=== PATIENT | male | born 1965 | race Caucasian/White ===

== ENCOUNTER 2019-12-02 16:39 | Emergency (ER) | payer OTHER ==
[~2019-12-02] VITALS: Ht 177.8 cm; Wt 101.2 kg
[2019-12-02] MEDS ORDERED: Nitroglycerin Subl 0.4mg tab SL ONE (16:50)
[2019-12-02 16:51] VITALS: BP 155/90
--- NOTE | 2019-12-02 16:51 | NUR ---
ED Nurse Note: PT walked in to ED for C/o SOB that started about 30 min ago. Per PT, SOB started after he started to chew his nicotine gum. Sp02 is 96 % on room air.
[2019-12-02] MEDS ORDERED: Nitroglycerin Subl 0.4mg tab SL PRN (17:00)
[2019-12-02 17:04] VITALS: BP 154/78
--- NOTE | 2019-12-02 17:04 | NUR ---
ED Nurse Note: blood sample collected and sent to lab
[2019-12-02 17:14] LABS: EOSINOPHILS % (AUTO) 0.7 % (0.0-3.0); HEMATOCRIT 44.1 % (42.0-52.0); HEMOGLOBIN 14.6 G/DL (14.2-18.0); LYMPHOCYTES % (AUTO) 25.9 % (20.0-45.0); MEAN CORPUSCULAR VOLUME 90 FL (80-99); MONOCYTES % (AUTO) 4.4 % (1.0-10.0); PLATELET COUNT 242 K/UL (150-450); RED BLOOD COUNT 4.92 M/UL (4.70-6.10); RED CELL DISTRIBUTION WIDTH 11.9 % (11.6-14.8)
--- NOTE | 2019-12-02 17:21 | Emergency Room Report ---
History of Present Illness General Chief Complaint: Dyspnea/Respdistress Source: Patient Present Illness HPI Patient is a 54-year-old male who presents after increased central chest discomfort. 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 Previously had been a smoker but denies any current smoking. He states he had been having recent increased use of nicotine gum. Reports having onset of chest tightness immediately after taking the gum. Denies any prior cardiac events. Patient states he is followed by his geophysical e logger Dr. Tariq. Denies any cough. He states he is been exercising more frequently as well as taking his cholesterol medications. He states he took aspirin 162 mg this morning. Onset of symptoms occurred approximately 30 minutes prior to arrival. Allergies: Coded Allergies: LISINOPRIL (Verified Allergy, Unknown, 12/02/19) COVID-19 Screening Contact w/high risk pt: No Recent Travel to affected area: No Experienced COVID-19 symptoms?: Yes COVID-19 symptoms experienced: Shortness of Breath COVID-19 Testing performed RESPIRATORY CARE SPECIALIST: No Patient History Past Medical History: see triage record Reviewed Nursing Documentation: PMH: Agreed; PSxH: Agreed Nursing Documentation-PMH Past Medical History: No History, Except For Hx Hypertension: Yes - high cholesterol Review of Systems All Other Systems: negative except mentioned in HPI Physical Exam Vital Signs Date Time Temp Pulse Resp B/P (MAP) Pulse Ox O2 Delivery O2 Flow Rate FiO2 12/02/19 16:49 98.2 86 18 152/91 (111) 95 Room Air Sp02 EP Interpretation: reviewed, normal General Appearance: normal inspection, well appearing, no apparent distress, alert Head: atraumatic ENT: normal ENT inspection, hearing grossly normal, normal voice Neck: normal inspection, full range of motion, supple, no bony tend Respiratory: normal inspection, lungs clear, normal breath sounds, no respiratory distress, no retraction, no wheezing Cardiovascular #1: regular rate, rhythm, no edema Gastrointestinal: normal inspection, normal bowel sounds, non tender, soft, no guarding, no hernia Genitourinary: no CVA tenderness Musculoskeletal: normal inspection, back normal, normal range of motion Neurologic: alert, responsive, speech normal, normal inspection Psychiatric: normal inspection, judgement/insight normal, mood/affect normal Medical Decision Making Diagnostic Impression: Primary Impression: Nonspecific chest pain ER Course Patient presented for chest pain. Differential diagnosis included but was not limited to acute coronary syndrome, pulmonary embolism, pneumonia, aortic dissection, shingles, pneumothorax, aortic dissection, esophageal rupture, pericarditis. EKG showed normal sinus rhythm without acute ST or T wave changes. CXR showed no acute pulmonary disease read by radiology. Bedside ultrasound showed no evidence of acute cardiac wall motion abnormalities. Patient appears to have chest pain which does have some risk for coronary artery disease. Patient was advised of this risk. He was also advised of laboratory testing. Patient was offered admission for further evaluation and work-up of chest discomfort and he stated he did not want to be admitted to the hospital or have observation for repeat troponins. Patient was advised that leaving the hospital AGAINST MEDICAL ADVICE may result in myocardial injury, or loss of current lifestyle. or patient said he would follow-up with his geophysical e logger. He was given prescription for nitroglycerin. Patient was advised to return if he had any worsening of condition or other concerns. Labs Test 12/02/19 17:00 White Blood Count 8.0 K/UL (4.8-10.8) Red Blood Count 4.92 M/UL (4.70-6.10) Hemoglobin 14.6 G/DL (14.2-18.0) Hematocrit 44.1 % (42.0-52.0) Mean Corpuscular Volume 90 FL (80-99) Mean Corpuscular Hemoglobin 29.8 PG (27.0-31.0) Mean Corpuscular Hemoglobin Concent 33.2 G/DL (32.0-36.0) Red Cell Distribution Width 11.9 % (11.6-14.8) Platelet Count 242 K/UL (150-450) Mean Platelet Volume 7.5 FL (6.5-10.1) Neutrophils (%) (Auto) 68.0 % (45.0-75.0) Lymphocytes (%) (Auto) 25.9 % (20.0-45.0) Monocytes (%) (Auto) 4.4 % (1.0-10.0) Eosinophils (%) (Auto) 0.7 % (0.0-3.0) Basophils (%) (Auto) 1.0 % (0.0-2.0) D-Dimer 0.36 mg/L FEU (0.00-0.49) Sodium Level 143 MMOL/L (136-145) Potassium Level 3.5 MMOL/L (3.5-5.1) Chloride Level 106 MMOL/L (98-107) Carbon Dioxide Level 25 MMOL/L (21-32) Anion Gap 12 mmol/L (5-15) Blood Urea Nitrogen 14 mg/dL (7-18) Creatinine 1.2 MG/DL (0.55-1.30) Estimat Glomerular Filtration Rate > 60 mL/min (>60) Glucose Level 102 MG/DL (74-106) Calcium Level 9.2 MG/DL (8.5-10.1) Total Bilirubin 2.0 MG/DL (0.2-1.0) Direct Bilirubin 0.3 MG/DL (0.0-0.3) Aspartate Amino Transf (AST/SGOT) 30 U/L (15-37) Alanine Aminotransferase (ALT/SGPT) 40 U/L (12-78) Alkaline Phosphatase 84 U/L (46-116) Troponin I 0.000 ng/mL (0.000-0.056) Pro-B-Type Natriuretic Peptide 38 pg/mL (0-125) Total Protein 7.4 G/DL (6.4-8.2) Albumin 4.0 G/DL (3.4-5.0) Globulin 3.4 g/dL Albumin/Globulin Ratio 1.2 (1.0-2.7) Lipase 111 U/L (73-393) EKG Diagnostic Results Rate: normal Rhythm: NSR ST Segments: no acute changes Last Vital Signs Date Time Temp Pulse Resp B/P (MAP) Pulse Ox O2 Delivery O2 Flow Rate FiO2 12/02/19 17:04 154/78 12/02/19 16:51 98.2 95 18 96 Room Air Status: improved Disposition: AGAINST MEDICAL ADVICE Condition: Stable Scripts Nitroglycerin 0.4MG table* (Nitroglycerin*) 0.4 Mg Tab.subl 0.4 MG SL .Q5MIN X 3 DOSES PRN for CHEST PAIN, #90 TAB Prov: Rolo Corley MD 12/02/19 Referrals: NON PHYSICIAN (PCP) Rolo Corley MD December 02, 2019 17:21
[2019-12-02 17:26] LABS: ANION GAP 12 mmol/L (5-15); BLOOD UREA NITROGEN 14 mg/dL (7-18); CALCIUM 9.2 MG/DL (8.5-10.1); CARBON DIOXIDE 25 MMOL/L (21-32); CHLORIDE 106 MMOL/L (98-107); CREATININE 1.2 MG/DL (0.55-1.30); POTASSIUM 3.5 MMOL/L (3.5-5.1); SODIUM 143 MMOL/L (136-145)
[2019-12-02 17:38] LABS: ALANINE AMINOTRANSFERASE 40 U/L (12-78); ALBUMIN/GLOBULIN RATIO 1.2 (1.0-2.7); ALKALINE PHOSPHATASE 84 U/L (46-116); ASPARTATE AMINO TRANSFERASE 30 U/L (15-37)
[2019-12-02 17:41] LABS: BILIRUBIN,DIRECT 0.3 MG/DL (0.0-0.3)
--- NOTE | 2019-12-02 17:44 | Diagnostic Imaging Report ---
EXAM: XR Chest, 1 View CLINICAL HISTORY: SOB TECHNIQUE: Frontal view of the chest. COMPARISON: No relevant prior studies available. FINDINGS: Lungs: Unremarkable. No consolidation. Pleural space: Unremarkable. No pneumothorax. Heart: Unremarkable. No cardiomegaly. Mediastinum: Unremarkable. Bones/joints: Unremarkable. IMPRESSION: No acute cardiopulmonary disease.
[2019-12-02] MEDS ORDERED: NITRO0.4 SL (18:20)
--- NOTE | 2019-12-02 18:33 | NUR ---
ED Nurse Note: Pt went AMA, patient states he "feels better and dosen't want to stay any longer." Dr Corley explained risks and patient verbalized understanding. Pt is alert and ox4, amb. IV removed wihtout complications. D/C paperwork and prescirption provided. AMA paper completed.
== END 2019-12-02 18:39 | disposition left against medical advice (07) ==
LOC: EMR 16:59
DX: R07.9 Chest pain, unspecified (principal); E78.00 Pure hypercholesterolemia, unspecified; R06.02 Shortness of breath; I10 Essential (primary) hypertension
CPT/HCPCS: 36415; 71045; 80053; 82248; 83690; 83880; 84484; 85025; 85379; 93005; 99284